=== PATIENT | female | born 1980 | race Caucasian/White ===

== ENCOUNTER → 2018-08-23 | Outpatient (CLI) | payer MEDICAID | END | disposition home or self-care (01) | LOC: U/S 07:58 | DX: O36.70X0 Maternal care for viable fetus in abdominal pregnancy, unspecified trimester, not applicable or unspecified (principal); Z3A.00 Weeks of gestation of pregnancy not specified | CPT/HCPCS: 76801; 76817 ==

== ENCOUNTER 2019-04-03 14:44 | Inpatient (IN) | payer MEDICAID ==
[2019-04-03 15:28] LABS: ADD MAN DIFF? NO
[2019-04-03] MEDS ORDERED: OXYTOCIN 30 UNITS/LR 500 ML IV ×2 (15:30→21:00)
[2019-04-03] MEDS ORDERED: CARBOPROST 250 MCG INJ IM ×2 (15:30→21:00)
[2019-04-03] MEDS ORDERED: METHYLERGONOVINE 0.2 MG INJ IM ×2 (15:30→21:00)
[2019-04-03] MEDS ORDERED: MISOPROSTOL 200 MCG TAB PR ×2 (15:30→21:00)
[2019-04-03 15:31] LABS: BASOPHILS % 0.5 % (0.0-2.0); EOSINOPHILS # 0.1 10^3/ul (0.0-0.5); EOSINOPHILS % 0.6 % (0.0-7.0); HEMATOCRIT 42.1 % (37.0-47.0); HEMOGLOBIN 13.8 g/dl (12.0-16.0); LYMPHOCYTES # 1.7 10^3/ul (0.8-2.9); LYMPHOCYTES % 21.1 % (15.0-51.0); MEAN CORPUSCULAR HEMOGLOBIN 28.6 pg (29.0-33.0); MEAN CORPUSCULAR HGB CONC 32.8 g/dl (32.0-37.0); MEAN CORPUSCULAR VOLUME 87.3 fl (82.0-101.0); MEAN PLATELET VOLUME 11.9 fl (7.4-10.4); MONOCYTE # 0.5 10^3/ul (0.3-0.9); MONOCYTES % 6.8 % (0.0-11.0); NEUTROPHIL # 5.5 10^3/ul (1.6-7.5); NEUTROPHILS % 69.9 % (39.0-77.0); PLATELET COUNT 229 10^3/UL (140-415); RED BLOOD COUNT 4.82 10^6/ul (4.20-5.40); RED CELL DISTRIBUTION WIDTH 13.5 % (11.5-14.5)
[2019-04-03 15:31] LABS: WHITE BLOOD COUNT 7.9 10^3/ul (4.8-10.8)
[2019-04-03] MEDS: LACTATED RINGER'S 1,000 ML IV ×2 (15:54→22:22)
[2019-04-03] MEDS: AZITHROMYCIN 500MG/NS (PMX) 250 ML IV (15:54)
[2019-04-03 15:55] LABS: INR 0.88; PT RATIO 0.9
[2019-04-03] MEDS ORDERED: ONDANSETRON 4 MG INJ (15:58)
[2019-04-03] MEDS ORDERED: CITRIC ACID/NA CITRATE 30 ML CUP (15:58)
[2019-04-03] MEDS ORDERED: OXYTOCIN 30 UNITS/LR 500 ML BAG IV (16:00)
[2019-04-03] MEDS: CITRIC ACID/NA CITRATE 30 ML CUP PO (16:04)
[2019-04-03] MEDS: ONDANSETRON 4 MG INJ IV (16:04)
[2019-04-03 16:20] LABS: HEPATITIS B SURFACE ANTIGEN NEGATIVE (NEGATIVE)
[2019-04-03] MEDS ORDERED: PHENYLephrine (100 MCG/ML) 10ML SYG (16:28)
[2019-04-03] MEDS ORDERED: morphine SULFATE/PF (10 MG/10 ML) INJ (16:29)
[2019-04-03] MEDS ORDERED: OXYTOCIN 10 UNIT INJ (16:29)
[2019-04-03] MEDS ORDERED: DEXAMETHASONE 4 MG/ML 1 ML INJ (16:57)
[2019-04-03] MEDS ORDERED: METOCLOPRAMIDE 10 MG INJ (16:57)
[2019-04-03] MEDS ORDERED: KETOROLAC 30 MG INJ (16:57)
[2019-04-03] MEDS ORDERED: morphine 2 MG INJ IV ×2 (17:30)
[2019-04-03] MEDS ORDERED: HYDROmorphONE 0.5 MG/0.5 ML SYG IV ×2 (17:30)
[2019-04-03] MEDS ORDERED: ONDANSETRON 4 MG INJ IV (17:30)
[2019-04-03] MEDS ORDERED: HYDROCODONE/APAP (5/325) TAB PO ×2 (17:30→21:00)
[2019-04-03] MEDS ORDERED: NALBUPHINE HCL (10 MG/1 ML) INJ IV (17:30)
[2019-04-03] MEDS ORDERED: ACETAMINOPHEN 500 MG TAB PO (17:30)
[2019-04-03] MEDS ORDERED: DIPHENHYDRAMINE 50 MG INJ IV (17:30)
[2019-04-03] MEDS ORDERED: NALOXONE (0.4 MG/ML) INJ IV (17:30)
[2019-04-03] MEDS: ACETAMINOPHEN 500 MG TAB PO (17:50)
[2019-04-03] MEDS: KETOROLAC 30 MG INJ IV (17:50)
[2019-04-03] MEDS: CEFAZOLIN 2 GM/50 ML (PMX) 50 ML IVPB (18:09)
[2019-04-03] MEDS: VANCOMYCIN 1 GM (PMX) 250 ML IVPB (18:35)
[2019-04-03] MEDS: OXYTOCIN 30 UNITS/LR 500 ML IV (18:40)
[2019-04-03 19:18] LABS: RAPID PLASMA REAGIN NONREACTIVE (NR)
[2019-04-03] MEDS ORDERED: OXYCODONE/ACETAMINOPHEN (5/325) TAB PO (21:00)
[2019-04-03] MEDS: SENNA/DOCUSATE NA (8.6MG/50MG) TAB PO (21:00)
[2019-04-03] MEDS ORDERED: NA PHOSPHATE/BIPHOS 133 ML ENEMA PR (21:00)
[2019-04-03] MEDS ORDERED: LANOLIN HPA 1 PKT TOP (21:00)
[2019-04-03] MEDS: IBUPROFEN 800 MG TAB PO (23:20)
[2019-04-04] MEDS: CLINDAMYCIN 300 MG CAP PO ×5 (01:28→23:53)
[2019-04-04] MEDS: CEFAZOLIN 2 GM/50 ML (PMX) 50 ML IVPB ×3 (01:28→17:53)
[2019-04-04] MEDS: IBUPROFEN 800 MG TAB PO ×3 (06:00→21:33)
[2019-04-04] MEDS: LACTATED RINGER'S 1,000 ML IV ×2 (07:30→15:30)
[2019-04-04 07:33] LABS: ADD MAN DIFF? NO
[2019-04-04 07:42] LABS: BASOPHILS % 0.2 % (0.0-2.0); HEMATOCRIT 39.9 % (37.0-47.0); HEMOGLOBIN 12.9 g/dl (12.0-16.0); LYMPHOCYTES # 1.7 10^3/ul (0.8-2.9); MEAN CORPUSCULAR HEMOGLOBIN 28.9 pg (29.0-33.0); MEAN CORPUSCULAR HGB CONC 32.3 g/dl (32.0-37.0); MEAN CORPUSCULAR VOLUME 89.3 fl (82.0-101.0); MEAN PLATELET VOLUME 11.7 fl (7.4-10.4); MONOCYTE # 1.1 10^3/ul (0.3-0.9); MONOCYTES % 7.6 % (0.0-11.0); NEUTROPHILS % 79.3 % (39.0-77.0); PLATELET COUNT 219 10^3/UL (140-415); RED BLOOD COUNT 4.47 10^6/ul (4.20-5.40); RED CELL DISTRIBUTION WIDTH 13.7 % (11.5-14.5)
[2019-04-04 07:42] LABS: WHITE BLOOD COUNT 13.9 10^3/ul (4.8-10.8)
[2019-04-04] MEDS: SENNA/DOCUSATE NA (8.6MG/50MG) TAB PO ×2 (09:59→21:33)
[2019-04-04] MEDS: BISACODYL 10 MG SUPP PR (10:00)
[2019-04-04] MEDS: KETOROLAC 30 MG INJ IV (16:21)
[2019-04-05] MEDS: CLINDAMYCIN 300 MG CAP PO ×3 (05:43→17:22)
[2019-04-05] MEDS: IBUPROFEN 800 MG TAB PO ×3 (05:43→21:19)
[2019-04-05 08:20] LABS: ADD MAN DIFF? NO
[2019-04-05 08:27] LABS: BASOPHILS % 0.2 % (0.0-2.0); EOSINOPHILS # 0.1 10^3/ul (0.0-0.5); HEMATOCRIT 38.7 % (37.0-47.0); HEMOGLOBIN 12.7 g/dl (12.0-16.0); LYMPHOCYTES # 1.9 10^3/ul (0.8-2.9); LYMPHOCYTES % 18.8 % (15.0-51.0); MEAN CORPUSCULAR HEMOGLOBIN 29.3 pg (29.0-33.0); MEAN CORPUSCULAR HGB CONC 32.8 g/dl (32.0-37.0); MEAN CORPUSCULAR VOLUME 89.4 fl (82.0-101.0); MEAN PLATELET VOLUME 11.9 fl (7.4-10.4); MONOCYTE # 0.8 10^3/ul (0.3-0.9); MONOCYTES % 7.5 % (0.0-11.0); NEUTROPHIL # 7.2 10^3/ul (1.6-7.5); NEUTROPHILS % 71.6 % (39.0-77.0); PLATELET COUNT 214 10^3/UL (140-415); RED BLOOD COUNT 4.33 10^6/ul (4.20-5.40); RED CELL DISTRIBUTION WIDTH 13.8 % (11.5-14.5)
[2019-04-05] MEDS: SENNA/DOCUSATE NA (8.6MG/50MG) TAB PO ×2 (09:00→21:19)
[2019-04-05] MEDS ORDERED: ACETAMINOPHEN 325 MG TAB PO (18:00)
[2019-04-06] MEDS: CLINDAMYCIN 300 MG CAP PO ×3 (00:21→12:18)
[2019-04-06] MEDS: IBUPROFEN 800 MG TAB PO ×2 (06:01→14:00)
[2019-04-06] MEDS: DIPHTH/TET/ACEL PERTUSS (ADULT) 0.5 ML VIAL IM* (07:43)
[2019-04-06] MEDS: SENNA/DOCUSATE NA (8.6MG/50MG) TAB PO (09:00)
[2019-04-06] MEDS: MEASLES,MUMPS,RUBELLA VACCINE INJ SC* (09:19)
== END 2019-04-06 16:35 | disposition home or self-care (01) | DRG 785 ==
LOC: L-D 14:44 → PP1 20:58
PROVIDERS: Obstetrics & Gynecology
PROC: 10D00Z1 Extraction of Products of Conception, Low, Open Approach (ICD-10-PCS; principal; 2019-04-03 15:30)
PROC: 0UL70ZZ Occlusion of Bilateral Fallopian Tubes, Open Approach (ICD-10-PCS; 2019-04-03 15:30)
PROC: 0UB90ZZ Excision of Uterus, Open Approach (ICD-10-PCS; 2019-04-03 15:30)
DX: O65.5 Obstructed labor due to abnormality of maternal pelvic organs (principal); O34.211 Maternal care for low transverse scar from previous cesarean delivery; O34.13 Maternal care for benign tumor of corpus uteri, third trimester; Z3A.39 39 weeks gestation of pregnancy; Z37.0 Single live birth; Z30.2 Encounter for sterilization
CPT/HCPCS: 85025; 85610; 85730; 86592; 86850; 86900; 86901; 87340; 88302; 88305; 99464